=== PATIENT | female | born 1960 | race Caucasian/White ===

== ENCOUNTER 2022-03-07 04:07 | Emergency (ER) | payer OTHER, SELFPAY ==
[2022-03-07 04:10] VITALS: BP 130/76; PULSE 70; RESP 18; TEMP 36.1; O2SAT 94; BMI 33.0
--- NOTE | 2022-03-07 04:18 | EKG12_ITS ---
Test Reason : DYSRHYTHMIA Blood Pressure : / mmHG Vent. Rate : 068 BPM Atrial Rate : 068 BPM P-R Int : 166 ms QRS Dur : 078 ms QT Int : 424 ms P-R-T Axes : 031 -03 015 degrees QTc Int : 450 ms Normal sinus rhythm Inferior infarct , age undetermined Abnormal ECG Confirmed by RAYMUNDO COELLO, YARIEL ([id number]), continuity editor BUDDY PEDRAZA ([id number]) on 03/11/2022 1:09:12 PM Referred By: TL Confirmed By:YARIEL FONSECA MD
--- NOTE | 2022-03-07 04:18 | CT_ITS ---
We are attempting to reach an attending provider to discuss findings. An addendum with communication details will be sent when the communication is complete. EXAM: CT HEAD WITHOUT INTRAVENOUS CONTRAST CLINICAL INDICATION: seizure TECHNIQUE: Multiple axial images were obtained of the head without intravenous contrast. This CT exam was performed using one or more of the following dose reduction techniques: automated exposure control, adjustment of the mA and/or kV according to patient size, and/or use of iterative reconstruction technique. This report was created using [employer] report generation technology. RADIATION DOSE: CTDIvol = 44.99 mGy, DLP = 812.98 mGy-cm COMPARISON: None. FINDINGS: BRAIN AND EXTRA-AXIAL SPACES: There is no intracranial hemorrhage. BONES/JOINTS: Unremarkable. No discrete lytic or blastic abnormalities. VASCULATURE: There is a large heavily calcified suspected aneurysm in the region of the distal right cavernous carotid-supraclinoid ICA versus heavily ossified meningioma or other mass, this measures roughly 1.1 cm x 1.1 cm. There also appears to be adjacent slight low-attenuation edema in the deep right frontal region and possibly small suprasellar mass involving the hypothalamic stalk or adjacent soft tissues. SINUSES: Unremarkable as visualized. Clear. MASTOID AIR CELLS: Unremarkable. Clear. ORBITS: Visualized globes, extraocular muscles, optic nerves and retrobulbar fat appear unremarkable. CT/Brain/Head without Contrast IMPRESSION: Complex findings with heavily calcified-ossified aneurysm adjacent edema versus mass in the right supraclinoid region and some adjacent subtle low-attenuation in the parenchyma.. Additional evaluation such as CTA and MRI with MRA is recommended. Of course any prior exam would be useful for comparison. Electronically Signed: Felecia Martinez MD at 5:26 EDT ,
--- NOTE | 2022-03-07 04:20 | EX.ED.DYSGE1 ---
HPI History of Present Illness Chief Complaint: Confusion Informant: spouse/S.O. Narrative Narrative: Brought in by EMS from home, is present providing information. Awake given at 3 AM, patient noted to be flailing both arms and foaming at the mouth. Concerns of seizures, lasted a few minutes. No history of seizures. Patient reported headache yesterday afternoon. Was doing well otherwise. No cough. No recent vomiting or diarrhea. Patient does not take daily medicines surgical history includes hiatal hernia, cholecystectomy, appendectomy. Patient does not respond to EMS blood glucose 133. Patient is slowly responding on arrival. Prior similar symptoms: No PFSH PFS Medical History (Updated 03/07/22 @ 07:[address] Dakotah West DO) Migraines Allergy/AdvReac Type Severity Reaction Status Date / Time acetaminophen [From Percocet] AdvReac Nausea Verified 03/07/22 04:24 oxycodone [From Percocet] AdvReac Nausea Verified 03/07/22 04:24 Surgical History History of appendectomy History of cholecystectomy History of hernia surgery Social History Smoking Status: Never smoker ROS ROS ED Review of Systems ROS Unobtainable: due to mental status Constitutional Constitutional ED: Denies chills, fever(s) or sweats ENT ENT ED: Denies dysphagia Cardiovascular Cardiovascular: Denies leg edema Respiratory/Chest Respiratory/Chest: Denies cough Gastrointestinal Gastrointestinal: Denies abdominal pain, diarrhea, nausea or vomiting Musculoskeletal Musculoskeletal: Denies extremity pain Integumentary Denies wounds Neurologic Neurologic: Reports headache(s) EXAM Physical Exam Const Vital Signs: 03/07/22 04:10 03/07/22 04:22 03/07/22 06:35 Temperature 96.9 F L Temperature Source Oral Pulse Rate 70 87 Respiratory Rate 18 16 Blood Pressure 130/76 H 124/66 H Blood Pressure Mean 94 85 Pulse Ox 94 94 Oxygen Delivery Method Room Air Room Air Room Air Oxygen Flow Rate (L/min) 03/07/22 07:00 Temperature Temperature Source Pulse Rate 65 Respiratory Rate 13 Blood Pressure 128/80 H Blood Pressure Mean 96 Pulse Ox 99 Oxygen Delivery Method Nasal Cannula Oxygen Flow Rate (L/min) 2 Positive well nourished and well developed Constitutional Narrative: Following some commands, answering some questions, protecting her airway, not fully awake given. General Appearance ED: well developed HEENT Reports moist mucous membranes HEENT Narrative: Tongue abrasion left anterior. normocephalic and atraumatic Eyes conjunctivae normal General Eye ED: Yes normal appearance of both eyes Neck no lymphadenopathy and supple General: Negative for tenderness Chest Wall Chest: Negative for tenderness Resp normal respiratory effort, normal air movement and clear to auscultation bilaterally Effort and Inspection: symmetric chest movement; Negative for respiratory distress Cardio regular rate, regular rhythm and no murmurs Peripheral Pulses: pulses 2+ throughout GI normal to inspection, nondistended, normoactive bowel sounds and non-tender Palpation: Negative for guarding or rebound tenderness present Back/Spine no CVA tenderness and no thoracic nor lumbar tenderness Extremity normal to inspection Extremity Narrative: Moving all 4 extremities. General Extremety ED: Negative for edema or tenderness General Extremity: Negative for edema Neuro oriented x3 and no sensory deficits noted Sensorium / Orientation: awake and alert MDM MDM MDM Narrative Medical decision making narrative: Patient history and exam with tongue abrasion concerning for seizure event.. She is postictal slow to come around currently ambulatory. Reported headache yesterday per spouse. Work-up was initiated and head CT. Chest x-ray labs and urine was ordered. Nursing reported to me later she had nausea therefore Zofran was ordered. EKG sinus rhythm. 0520: I spoke with [facility] neurologist, evaluated the patient, does feel this is likely a seizure especially waking out of sleep. He states highly likelihood of it reoccurring and recommended loading dose of Keppra [address] brain resulted from radiology report noted possible aneurysm versus mass at the right supraclinoid region with subtle low-attenuation in the parenchyma. Radiologist also called, both neurology and radiology feel a CT angiogram will help differentiate the findings from the Noncon CT. Neurology recommended continuing Keppra 500 mg twice daily. Will likely need MRI studies with and without contrast in the hospital for further evaluation also. Reevaluation patient she is more awake in the room. She required additional Reglan for nausea control. Labs White count 4.3 sodium 142 creatinine 0.65. Potassium 3.0. 0700: My wet read had concerning mass 4 x 3 cm, I did not see a mass-effect she was given Decadron. Final read of large extra-axial lesion right middle cranial fossa adjacent to the medial margin of the temporal bone measuring 4 x 3 x 2.8 cm with a focal dense calcification along the clinoid process. This suggesting a large hematoma however per radiology a giant aneurysm is still in the differential however less likely. I spoke with spouse agrees with transfer to [facility]. I spoke with [facility] transfer line, discussed the findings concerns. She is excepted under Dr. Herndon to the ED to be evaluated. I did discuss laboratory findings with hypokalemia, this not causing her seizure activities, her EKG was normal. We will hold off on treatment this time. Urine returned negative for infection. Chest x-ray 1 view reviewed by myself and read by radiology. Shows no acute process. Lab Data Attestation: I reviewed the patient's lab results. Labs: Laboratory Results - last 24 hr 03/07/22 03/07/22 03/07/22 04:20 04:20 06:35 WBC 4.3 L RBC 4.37 Hgb 12.7 Hct 38.1 MCV 87.2 MCH 29.1 MCHC 33.3 RDW Std Deviation 44.0 H RDW Coeff of David 14.0 Plt Count 224 MPV 9.5 Immature Gran % (Auto) 0.200 Neut % (Auto) 51.8 Lymph % (Auto) 39.1 [place] % (Auto) 7.0 Eos % (Auto) 1.4 Baso % (Auto) 0.5 Absolute Neuts (auto) 2.2 Absolute Lymphs (auto) 1.68 Nucleated RBC % 0 Differential Comment SCANNED Platelet Estimate ADEQUATE Sodium 142 Potassium 3.0 L Chloride 111 H Carbon Dioxide 23.0 Anion Gap 8 BUN 14 Creatinine 0.65 Estim Creat Clear Calc 83.86 Est GFR (MDRD) Af Amer 119 Est GFR (MDRD) Non-Af 99 BUN/Creatinine Ratio 21.5 H Glucose 137 H Calcium 7.9 L Total Bilirubin 0.30 AST 19 ALT 26 Alkaline Phosphatase 48 Troponin I High Sens 4 Total Protein 6.3 L Albumin 3.2 Globulin 3.1 Albumin/Globulin Ratio 1.0 Urine Color Yellow Urine Clarity Clear Urine pH 7.0 Ur Specific [place] 1.010 Urine Protein Negative Urine Glucose (UA) Normal Urine Ketones Negative Urine Occult Blood 10 H Urine Nitrite Negative Urine Bilirubin Negative Urine Urobilinogen Normal Ur Leukocyte Esterase Negative Urine RBC 0 SEEN Urine WBC 0 SEEN Ur Squamous Epith Cells 0-5 SEEN Urine Bacteria 0 SEEN Urine Mucus 0 SEEN Radiography Diagnostic Testing: Clinical Impression(s) from Imaging Studies Brain CT 03/07/22 04:18 IMPRESSION: Complex findings with heavily calcified-ossified aneurysm adjacent edema versus mass in the right supraclinoid region and some adjacent subtle low-attenuation in the parenchyma.. Additional evaluation such as CTA and MRI with MRA is recommended. Of course any prior exam would be useful for comparison. Electronically Signed: Felecia Martinez MD at 5:26 EDT , ADDENDUM: 03/07/22 0538 IMPRESSION: Complex findings with heavily calcified-ossified aneurysm adjacent edema versus mass in the right supraclinoid region and some adjacent subtle low-attenuation in the parenchyma.. Additional evaluation such as CTA and MRI with MRA is recommended. Of course any prior exam would be useful for comparison. N.B. : The above Results were Read Back by Felecia Martinez MD to Dr Dakotah West MD, and understanding confirmed on 03/07/2022 05:31:34 (ET). Electronically Signed: Felecia Martinez MD at 5:26 EDT , Chest X-Ray 03/07/22 05:00 IMPRESSION: No radiographic evidence of acute cardiopulmonary disease. Electronically Signed: Felecia Martinez MD at 5:30 EDT , Head/Neck CTA 03/07/22 05:33 IMPRESSION: 1. Large extra-axial lesion in the right middle cranial fossa adjacent to the medial margin of the temporal lobe measuring 4.0 x 3.0 x 2.8 cm with a focus of dense calcification along the clinoid process, mild enhancement on the initial CTA images, and diffuse enhancement on delayed images. The imaging characteristics suggest a large meningioma, but a giant aneurysm is still in the differential, although considered less likely. A follow-up MRI including post gadolinium images and an MRA exam are recommended. 2. Otherwise unremarkable CTA evaluation of the head/neck. Electronically Signed: Pavan Nam MD at 7:00 EDT Reading Location ID and State: [address] [place] [address] Tel , Service support , ADDENDUM: 03/07/22 0711 IMPRESSION: 1. Large extra-axial lesion in the right middle cranial fossa adjacent to the medial margin of the temporal lobe measuring 4.0 x 3.0 x 2.8 cm with a focus of dense calcification along the clinoid process, mild enhancement on the initial CTA images, and diffuse enhancement on delayed images. The imaging characteristics suggest a large meningioma, but a giant aneurysm is still in the differential, although considered less likely. A follow-up MRI including post gadolinium images and an MRA exam are recommended. 2. Otherwise unremarkable CTA evaluation of the head/neck. N.B. : Dakotah West MD, confirmed on 03/07/2022 07:04:36 (ET) that the healthcare facility has received the radiology report. Electronically Signed: Pavan Nam MD at 7:00 EDT Reading Location ID and State: [address] [place] [address] Tel , Service support , EKG Initial EKG: Attestation: I personally reviewed and interpreted this EKG as follows: Comments: Sinus rate of [address] or T wave changes. QTc 450. Discharge Plan Triage Chief Complaint: Confusion ED Provider: Dakotah West Dx/Rx/DC Orders Clinical Impression: New onset seizure without head trauma, Brain mass Primary Care Provider: Carmen Williamson Referrals: Carmen Williamson PA [Primary Care Provider] - Disposition Disposition: Transfer to Another Type [facility]
[2022-03-07] MEDS: Ondansetron 4 MG/2 ML Vial IV (04:30)
[2022-03-07 04:34] LABS: Absolute Lymphocyte Count 1.68 X10^3/uL (0.83-4.51); Absolute Neutrophil Count 2.2 X10^3/uL (2.0-7.7); Basophil# 0.02 X10^3/uL; Basophil% 0.5 % (0-1); Eosinophil# 0.06 X10^3/uL; Eosinophils% 1.4 % (0-5); Hematocrit 38.1 % (37-47); Hemoglobin 12.7 g/dL (12.0-15.0); Lymphocyte # 1.68 X10^3/ul (0.83-4.51); Lymphocyte % 39.1 % (19-41); Mean Corp Hgb Conc 33.3 g/dL (32-36); Mean Corpuscular Hgb 29.1 pg (27.0-32.0); Mean Corpuscular Volume 87.2 fL (81-99); Mean Platelet Vol. 9.5 fl (6.2-12.0); NRBC Flagged by Analyzer 0 % (0-5); Neutrophil # 2.23 X10^3/uL (2.7-7.7); Neutrophil % 51.8 % (47-70); POSITIVE COUNT YES; Platelet Count 224 K/mm3 (150-450); Red Blood Count 4.37 M/mm3 (4.2-5.4); White Blood Count 4.3 K/mm3 (4.4-11.0)
[2022-03-07 04:38] LABS: Differential Indicated SCAN CRITERIA MET
[2022-03-07 04:46] LABS: AST(SGOT) 19 U/L (15-37); Alanine Aminotransfer ALT/SGPT 26 U/L (13-56); Albumin, Serum 3.2 g/dL (3.2-5.0); Alkaline Phosphatase 48 U/L (45-117); Anion Gap 8 (5-15); BUN 14 mg/dL (7-18); BUN/Creat Ratio 21.5 RATIO (10-20); Calcium,Total 7.9 mg/dL (8.5-10.1); Chloride 111 mmol/L (98-107); Creatinine, Serum 0.65 mg/dL (0.55-1.02); EST Glomerular Filtration Rate 99 mL/min (>60); Est Glom Filt Rate - Afr Amer 119 mL/min (>60); Estimated Creatinine Clearance 83.86 ml/min; Globulin 3.1 g/dL (2.2-4.2); Glucose 137 mg/dL (74-106); Protein, Total 6.3 g/dL (6.4-8.2); Sodium Level 142 mmol/L (136-145); Troponin-I HS 4 pg/mL (3.0-54.0)
--- NOTE | 2022-03-07 05:00 | RAD_ITS ---
EXAM: XR CHEST, 1 VIEW CLINICAL INDICATION: altered mental status TECHNIQUE: Frontal view of the chest. This report was created using [employer] report generation technology. COMPARISON: None. FINDINGS: LUNGS AND PLEURAL SPACES: Unremarkable. No consolidation or edema. No pneumothorax. No effusion. HEART: Unremarkable. Cardiac silhouette not enlarged. MEDIASTINUM: Central airways and mediastinal contour are unremarkable. BONES/JOINTS: Unremarkable. SOFT TISSUES: Unremarkable. RAD/Chest 1 View (Portable) IMPRESSION: No radiographic evidence of acute cardiopulmonary disease. Electronically Signed: Felecia Martinez MD at 5:30 EDT ,
--- NOTE | 2022-03-07 05:01 | TELEMED_ITS ---
[facility] has confirmed receipt of a request for visit. This document confirms receipt of the order initiating the consult. To find the results of the consultation, please view the patient's reports for the scanned Telemed Consult.
[2022-03-07 05:05] LABS: Differential Comment SCANNED; Platelet Estimate ADEQUATE (ADEQ)
[2022-03-07] MEDS: Metoclopramide 10 MG/2 ML Vial 5 MG IV (05:13)
--- NOTE | 2022-03-07 05:33 | CT_ITS ---
ACR Level 3 findings have been noted. An addendum which confirms receipt of the report will follow. EXAM: CT ANGIOGRAPHY HEAD AND NECK WITH INTRAVENOUS CONTRAST CLINICAL INDICATION: aneurysm TECHNIQUE: [place] [facility] [place]/head and neck CT angiography protocol performed with intravenous contrast. This CT exam was performed using one or more of the following dose reduction techniques: automated exposure control, adjustment of the mA and/or kV according to patient size, and/or use of iterative reconstruction technique. This report was created using [employer] report generation technology. MIP reconstructed images were created and reviewed. CONTRAST: IV 100mL [id number] COMPARISON: Noncontrast head CT from same date. FINDINGS: HEAD: RIGHT ANTERIOR CEREBRAL ARTERY: Unremarkable. No significant stenosis at the visualized segments. Anterior communicating artery is present. No aneurysm. RIGHT MIDDLE CEREBRAL ARTERY: Unremarkable. No significant stenosis at the visualized segments. No aneurysm. RIGHT POSTERIOR CEREBRAL ARTERY: Unremarkable. No occlusion or significant stenosis. No aneurysm. RIGHT INTRACRANIAL INTERNAL CAROTID ARTERY: Unremarkable. No significant stenosis. No dissection or occlusion. RIGHT INTRACRANIAL VERTEBRAL ARTERY: Unremarkable. No significant stenosis. No dissection or occlusion. LEFT ANTERIOR CEREBRAL ARTERY: Unremarkable. No significant stenosis at the visualized segments. No aneurysm. LEFT MIDDLE CEREBRAL ARTERY: Unremarkable. No significant stenosis at the visualized segments. No aneurysm. LEFT POSTERIOR CEREBRAL ARTERY: Unremarkable. No occlusion or significant stenosis. No aneurysm. LEFT INTRACRANIAL INTERNAL CAROTID ARTERY: Unremarkable. No significant stenosis. No dissection or occlusion. LEFT INTRACRANIAL VERTEBRAL ARTERY: Unremarkable. No significant stenosis. No dissection or occlusion. BASILAR ARTERY: Unremarkable. No significant stenosis. No aneurysm. OTHER VASCULATURE: No vascular malformation. BRAIN AND EXTRA-AXIAL SPACES: Large extra-axial lesion in the right middle cranial fossa along the medial margin of the temporal lobe measuring 4.0 x 3.0 x 2.8 cm with a focus of dense calcification along the clinoid process, mild enhancement on the initial CTA images, and diffuse enhancement on delayed images. NECK: RIGHT COMMON CAROTID ARTERY: Unremarkable. No significant stenosis. No dissection or occlusion. RIGHT EXTRACRANIAL INTERNAL CAROTID ARTERY: Unremarkable. No significant stenosis. No dissection or occlusion. RIGHT EXTERNAL CAROTID ARTERY: Unremarkable. No occlusion. RIGHT EXTRACRANIAL VERTEBRAL ARTERY: Unremarkable. No significant stenosis. No dissection or occlusion. LEFT COMMON CAROTID ARTERY: Unremarkable. No significant stenosis. No dissection or occlusion. LEFT EXTRACRANIAL INTERNAL CAROTID ARTERY: Unremarkable. No significant stenosis. No dissection or occlusion. LEFT EXTERNAL CAROTID ARTERY: Unremarkable. No occlusion. LEFT EXTRACRANIAL VERTEBRAL ARTERY: Unremarkable. No significant stenosis. No dissection or occlusion. GREAT VESSELS OF AORTIC ARCH: Unremarkable as visualized. Normal anatomy, patent. LUNG APICES: Unremarkable as visualized. HEAD and NECK: BONES/JOINTS: No acute osseous findings. SOFT TISSUES: Unremarkable. CAROTID STENOSIS REFERENCE USING NASCET CRITERIA: % ICA stenosis = (1 - narrowest ICA diameter/diameter of distal cervical ICA) x 100. Mild - <50% stenosis. Moderate - 50-69% stenosis. Severe - 70-94% stenosis. Near occlusion - 95-99% stenosis. Occluded - 100% stenosis. CT/CTA Head AND Neck W/ Contrast IMPRESSION: 1. Large extra-axial lesion in the right middle cranial fossa adjacent to the medial margin of the temporal lobe measuring 4.0 x 3.0 x 2.8 cm with a focus of dense calcification along the clinoid process, mild enhancement on the initial CTA images, and diffuse enhancement on delayed images. The imaging characteristics suggest a large meningioma, but a giant aneurysm is still in the differential, although considered less likely. A follow-up MRI including post gadolinium images and an MRA exam are recommended. 2. Otherwise unremarkable CTA evaluation of the head/neck. Electronically Signed: Pavan Nam MD at 7:00 EDT ,
[2022-03-07] MEDS: dexAMETHasone 10 MG/ML Vial IV (06:27)
[2022-03-07 06:35] VITALS: BP 124/66; PULSE 87; RESP 16; O2SAT 94
[2022-03-07 06:41] LABS: Bacteria 0 SEEN /hpf (None Seen); Mucous, Urine 0 SEEN /hpf (<or=2+); Red Blood Cells-Urine 0 SEEN /hpf (0-5); White Blood Cells 0 SEEN /hpf (0-5)
[2022-03-07 06:44] LABS: Color, Urine Yellow (Yellow); Glucose, Dipstick Normal (Normal); Ketone-Dipstick Negative (Negative); Leukocyte Esterase-Dipstick Negative /ul (Negative); Nitrite-Dipstick Negative (Negative); Occult Blood-Urine 10 /ul (Negative); Protein-Dipstick Negative (Negative); Urine Bilirubin Dipstick Negative (Negative); Urine Clarity Clear (Clear); Urine Urobilinogen Normal (Normal)
[2022-03-07 06:50] LABS: Squamous Epithelial Cells - UA 0-5 SEEN /hpf (5-10)
[2022-03-07 07:00] VITALS: BP 128/80; PULSE 65; RESP 13; O2SAT 99
[2022-03-07 07:23] VITALS: BP 125/74; PULSE 78; RESP 18; O2SAT 98
--- NOTE | 2022-03-07 10:05 | ED.RN ---
SPOKE WITH PT. DAUGHTER, FABI, AND FRIEND, JANE SÁNCHEZ, AND UPDATED PT. STATUS. PT. VERBALIZED CONSENT.
[2022-03-07 10:39] VITALS: BP 96/53; PULSE 74; RESP 18; O2SAT 98
== END 2022-03-07 10:47 | disposition other institution (70) ==
PROVIDERS: Emergency Provider Emergency Medicine; PCP Physician Assistant; Visit Provider Emergency Medicine
DX: R56.9 Unspecified convulsions (principal); G93.9 Disorder of brain, unspecified
CPT/HCPCS: 70450; 70496; 70498; 71045; 80053; 81001; 84484; 85025; 93005; 96365; 96375; 99285; Q9967; A4216; J2405

== ENCOUNTER 2022-04-07 07:20 | Emergency (ER) | payer OTHER, SELFPAY ==
[2022-04-07 07:22] VITALS: BP 118/69; PULSE 75; RESP 17; TEMP 36.8; O2SAT 97; BMI 34.9
--- NOTE | 2022-04-07 07:38 | EKG12_ITS ---
Test Reason : FEVER Blood Pressure : / mmHG Vent. Rate : 073 BPM Atrial Rate : 073 BPM P-R Int : 140 ms QRS Dur : 076 ms QT Int : 386 ms P-R-T Axes : 050 009 018 degrees QTc Int : 425 ms Normal sinus rhythm Nonspecific ST abnormality Abnormal ECG Confirmed by LEO COELLO, ALEXANDRA ([id number]), photographic editor CARMINE LENTZ ([id number]) on 04/09/2022 8:44:28 AM Referred By: Confirmed By:ALEXANDRA BAILEY MD
--- NOTE | 2022-04-07 07:38 | RAD_ITS ---
STUDY: X-RAY CHEST REASON FOR EXAM: Female, 61 years old. FEVER TECHNIQUE: Single AP portable view of the chest. COMPARISON: Comparison is made with prior study dated 03/07/2022. FINDINGS: EKG electrodes are seen. The lungs are clear and expanded. Stable elevation of the right hemidiaphragm. There is no demonstrated pleural abnormality. There is borderline cardiomegaly. Normal mediastinum and campbell. Normal visualized pulmonary arteries. There is atherosclerotic tortuosity of the aortic arch and descending thoracic aorta. There are degenerative changes of the visualized thoracic spine. Normal visualized ribs, clavicles, and shoulders. There is no demonstrated abnormality of the visualized soft tissue structures of the upper abdomen. RAD/Chest 1 View (Portable) IMPRESSION: Borderline cardiomegaly. The lungs are clear. Electronically Signed: Miguel Angel Cotton MD at 8:42 EDT ,
--- NOTE | 2022-04-07 07:40 | EDS_ITS ---
HPI History of Present Illness Chief Complaint: Fever Informant: patient and spouse/S.O. Narrative Narrative: Patient underwent craniotomy at [facility] on 27 March 2022 for meningioma that was benign. She was released several days later. Yesterday began to feel a heada josiah on the right side of her head near her craniotomy scar. At midnight she had a 101 fever. gave her Tylenol. This morning she felt like she may pass out trying to get out of the chair. She denies any neck pain. No sensitivity to light. She describes the headache as throbbing and isolated. She denies any rashes. She felt slightly nauseous this morning. [facility] Medical History (Updated 04/07/22 @ 13:[address] Lemuel Ng DO) Meningioma Migraines Home Medications oxycodone 5 mg capsule 5 mg PO Q6H PRN pain 3 days #12 caps 04/07/22 [Rx Last Taken Unknown] Allergy/AdvReac Type Severity Reaction Status Date / Time meperidine [From Demerol] AdvReac Nausea Verified 04/07/22 07:21 Surgical History History of appendectomy History of cholecystectomy History of hernia surgery Social History Smoking Status: Never smoker ROS ROS ED Constitutional Constitutional ED: Reports fever(s); Denies chills or weight loss Eyes Eyes: Denies change in vision or diplopia ENT ENT ED: Denies ear pain, rhinorrhea or sore throat Cardiovascular Cardiovascular: Reports other Details: NEAR SYNCOPE ; Denies chest pain, orthopnea, palpitations or racing heartbeat Respiratory/Chest Respiratory/Chest: Denies cough, dyspnea or orthopnea Gastrointestinal Gastrointestinal: Denies abdominal pain, diarrhea, nausea or vomiting Genitourinary Genitourinary ED: Denies dysuria, hematuria or urinary frequency Musculoskeletal Musculoskeletal: Denies arthralgias, back pain, myalgias or neck pain Integumentary Denies abscess or rash Neurologic Neurologic: Reports headache(s); Denies weakness Psychiatric Psychiatric: Denies anxiety, depression, suicidal ideation or suicidal thoughts Endocrine Endocrinology: Denies polydipsia, polyphagia or polyuria Allergic/Immunologic Allergic/Immunologic ED: Denies mouth swelling, tongue swelling or urticaria EXAM Physical Exam Const Vital Signs: 04/07/22 07:22 04/07/22 08:40 04/07/22 08:40 Temperature 98.2 F Temperature Source Temporal Pulse Rate 75 68 Respiratory Rate 17 16 Respiratory Pattern Normal Blood Pressure 118/69 117/71 Blood Pressure Mean 85 86 Pulse Ox 97 98 Oxygen Delivery Method Room Air Room Air 04/07/22 10:25 Temperature 97.9 F Temperature Source Temporal Pulse Rate 69 Respiratory Rate 16 Respiratory Pattern Blood Pressure 135/73 H Blood Pressure Mean 93 Pulse Ox 98 Oxygen Delivery Method Room Air Positive well nourished and well developed General Appearance ED: well developed HEENT Reports normocephalic and moist mucous membranes HEENT Narrative: Healing craniotomy scar without complication Eyes PERRL and EOMs intact bilaterally Eyes Narrative: No photophobia. Normal funduscopic exam. Neck no lymphadenopathy, supple and no JVD Neck Narrative: Patient has no meningeal signs. Resp normal respiratory effort and clear to auscultation bilaterally Cardio regular rate, regular rhythm and no murmurs GI normal to inspection, nondistended, normoactive bowel sounds and non-tender Palpation: soft Back/Spine no CVA tenderness and normal ROM Extremity normal to inspection General Extremety ED: Negative for edema General Extremity: Negative for edema Neuro oriented x3 and CN's II-XII intact bilaterally Sensorium / Orientation: alert Motor Exam: strength 5/5 throughout Psych mental status grossly normal Mood & Affect: Negative for depressed or tearful Skin no rashes or lesions noted and no wounds MDM MDM MDM Narrative Medical decision making narrative: Patient's blood work is very reassuring. White count is 8 lactic acid is normal 1.1. CMP is normal. Urinalysis does not show any infection. My interpretation of the chest x-ray is no acute process. COVID and influenza were negative. Patient received a dose of Toradol and her headache is significantly improved. CT of the brain with and without contrast was obtained. I spoke with her neurosurgeon at [facility]. We reviewed the CT and her labs. They feel that the CT is consistent with typical postoperative changes. We do not see evidence of meningitis. They are comfortable with her being discharged. Spoke with the family and the patient we will discharge her home. They did not fill a prescription for pain medicine when they left [facility] and think that it may still be at their pharmacy. I will write for another prescription in case that prescription is no longer valid. Lab Data Attestation: I reviewed the patient's lab results. Labs: Laboratory Results - last 24 hr 04/07/22 04/07/22 04/07/22 08:10 08:10 08:10 WBC 8.0 RBC 4.54 Hgb 13.3 Hct 40.8 MCV 89.9 MCH 29.3 MCHC 32.6 RDW Std Deviation 46.9 H RDW Coeff of David 14.5 Plt Count 307 MPV 8.5 Immature Gran % (Auto) 0.500 Neut % (Auto) 71.5 H Lymph % (Auto) 18.2 L Waller % (Auto) 9.3 Eos % (Auto) 0.1 Baso % (Auto) 0.4 Absolute Neuts (auto) 5.7 Absolute Lymphs (auto) 1.45 Nucleated RBC % 0 Sodium 141 Potassium 3.5 Chloride 106 Carbon Dioxide 29.0 Anion Gap 6 BUN 10 Creatinine 0.63 Estim Creat Clear Calc 72.55 Est GFR (MDRD) Af Amer 124 Est GFR (MDRD) Non-Af 102 BUN/Creatinine Ratio 15.8 Glucose 92 Lactic Acid 1.1 Calcium 9.0 Total Bilirubin 0.40 AST 12 L ALT 17 Alkaline Phosphatase 61 Total Protein 6.6 Albumin 3.1 L Globulin 3.5 Albumin/Globulin Ratio 0.9 Lipase 58 L Urine Color Urine Clarity Urine pH Ur Specific [place] Urine Protein Urine Glucose (UA) Urine Ketones Urine Occult Blood Urine Nitrite Urine Bilirubin Urine Urobilinogen Ur Leukocyte Esterase Urine RBC Urine WBC Ur Squamous Epith Cells Urine Bacteria Urine Mucus 04/07/22 08:13 WBC RBC Hgb Hct MCV MCH MCHC RDW Std Deviation RDW Coeff of David Plt Count MPV Immature Gran % (Auto) Neut % (Auto) Lymph % (Auto) Waller % (Auto) Eos % (Auto) Baso % (Auto) Absolute Neuts (auto) Absolute Lymphs (auto) Nucleated RBC % Sodium Potassium Chloride Carbon Dioxide Anion Gap BUN Creatinine Estim Creat Clear Calc Est GFR (MDRD) Af Amer Est GFR (MDRD) Non-Af BUN/Creatinine Ratio Glucose Lactic Acid Calcium Total Bilirubin AST ALT Alkaline Phosphatase Total Protein Albumin Globulin Albumin/Globulin Ratio Lipase Urine Color Yellow Urine Clarity Clear Urine pH 6.5 Ur Specific [place] 1.010 Urine Protein Negative Urine Glucose (UA) Normal Urine Ketones Negative Urine Occult Blood 10 H Urine Nitrite Negative Urine Bilirubin Negative Urine Urobilinogen Normal Ur Leukocyte Esterase 25 H Urine RBC 0 SEEN Urine WBC 5-10 SEEN Ur Squamous Epith Cells 0-5 SEEN Urine Bacteria 0 SEEN Urine Mucus 0 SEEN Radiography Diagnostic Testing: Clinical Impression(s) from Imaging Studies Chest X-Ray 04/07/22 07:38 IMPRESSION: Borderline cardiomegaly. The lungs are clear. Electronically Signed: Miguel Angel Cotton MD at 8:42 EDT , Brain CT 04/07/22 08:25 IMPRESSION: Status post right frontal parietal temporal craniotomy with postoperative overlying soft tissue changes. Small amount of fluid and air is seen within the soft tissues as well as a small amount of air and fluid seen in the subdural space overlying the right frontal lobe. Meningeal enhancement along the anterior aspect of the right temporal Electronically Signed: Miguel Angel Cotton MD at 9:08 EDT , EKG Initial EKG: Attestation: I personally reviewed and interpreted this EKG as follows: Comments: Normal sinus rhythm with a ventricular rate of 73 bpm Discharge Plan Triage Chief Complaint: Fever ED Provider: Lemuel Ng Dx/Rx/DC Orders Clinical Impression: Headache, Acute febrile illness Instructions: ED FUO Adult Prescriptions: New oxycodone 5 mg capsule 5 mg PO Q6H PRN (Reason: pain) 3 Days Qty: 12 0RF Primary Care Provider: Carmen Williamson Referrals: Carmen Williamson PA [Primary Care Provider] - Activity Restrictions/Additional Instructions: Please call your neurosurgeons office to update them either tomorrow or the next day regarding how she is feeling. They will also need to know if she has any additional fever or new symptoms. If there are any concerns please return to emergency. Disposition Disposition: Home, Self Care
[2022-04-07] MEDS: 0.9% Normal Saline 1,000 ML 1000 ML IV (08:13)
[2022-04-07] MEDS: Ondansetron 4 MG/2 ML Vial IV (08:13)
[2022-04-07 08:25] LABS: Absolute Lymphocyte Count 1.45 X10^3/uL (0.83-4.51); Absolute Neutrophil Count 5.7 X10^3/uL (2.0-7.7); Basophil# 0.03 X10^3/uL; Basophil% 0.4 % (0-1); Eosinophil# 0.01 X10^3/uL; Eosinophils% 0.1 % (0-5); Hematocrit 40.8 % (37-47); Hemoglobin 13.3 g/dL (12.0-15.0); Lymphocyte # 1.45 X10^3/ul (0.83-4.51); Lymphocyte % 18.2 % (19-41); Mean Corp Hgb Conc 32.6 g/dL (32-36); Mean Corpuscular Hgb 29.3 pg (27.0-32.0); Mean Corpuscular Volume 89.9 fL (81-99); Mean Platelet Vol. 8.5 fl (6.2-12.0); Monocyte# 0.74 X10^3/uL; Monocyte% 9.3 % (0-10); NRBC Flagged by Analyzer 0 % (0-5); Neutrophil # 5.69 X10^3/uL (2.7-7.7); Neutrophil % 71.5 % (47-70); Platelet Count 307 K/mm3 (150-450); RBC Distribution Width CV 14.5 % (11.6-14.6); RBC Distribution Width SD 46.9 fl (35.1-43.9); Red Blood Count 4.54 M/mm3 (4.2-5.4)
--- NOTE | 2022-04-07 08:25 | CT_ITS ---
STUDY: CT BRAIN WITH AND WITHOUT CONTRAST REASON FOR EXAM: Female, 61 years old. HEADACHE AND FEVER RECENT CRANIOTOMY RADIATION DOSAGE (If Supplied By Facility): CTDIvol = ( 44.99 ) mGy, DLP = ( 1583.78 ) mGycm TECHNIQUE: Transaxial CT imaging of the brain was performed pre and post contrast administration. The examination was performed with intravenous administration of 50 CC ISOVUE 300. Individualized dose optimization techniques were used for this CT. COMPARISON: Comparison is made with prior examination dated 03/07/2022. FINDINGS: Soft tissue swelling overlying the right craniotomy site with a small air bubbles within the soft tissues. The patient is status post right temporal frontal parietal craniotomy. There is evidence of a small amount of the fluid in the subdural space overlying the right frontal lobe at the operative site with a small amount of air within the subdural space. There is evidence of a meningeal enhancement along the anterior aspect of the right temporal fossa. The patient is status post resection of the meningioma or aneurysm in the region of the right cavernous carotid/supraclinoid region. Normal basal ganglia and thalami. Normal brainstem. Normal cerebellum. There is no intracranial hemorrhage. There are no findings of an acute ischemic infarction. Normal visualized paranasal sinuses. CT/Brain/Head W/WO Contrast IMPRESSION: Status post right frontal parietal temporal craniotomy with postoperative overlying soft tissue changes. Small amount of fluid and air is seen within the soft tissues as well as a small amount of air and fluid seen in the subdural space overlying the right frontal lobe. Meningeal enhancement along the anterior aspect of the right temporal Electronically Signed: Miguel Angel Cotton MD at 9:08 EDT ,
[2022-04-07 08:40] VITALS: BP 117/71; PULSE 68; RESP 16; O2SAT 98
[2022-04-07 08:40] LABS: ALB/GLOB Ratio 0.9 RATIO (0.9-2.4); AST(SGOT) 12 U/L (15-37); Alanine Aminotransfer ALT/SGPT 17 U/L (13-56); Albumin, Serum 3.1 g/dL (3.2-5.0); Alkaline Phosphatase 61 U/L (45-117); Anion Gap 6 (5-15); BUN 10 mg/dL (7-18); BUN/Creat Ratio 15.8 RATIO (10-20); Chloride 106 mmol/L (98-107); Creatinine, Serum 0.63 mg/dL (0.55-1.02); EST Glomerular Filtration Rate 102 mL/min (>60); Est Glom Filt Rate - Afr Amer 124 mL/min (>60); Estimated Creatinine Clearance 72.55 ml/min; Globulin 3.5 g/dL (2.2-4.2); Glucose 92 mg/dL (74-106); Lipase 58 U/L (73-393); Potassium 3.5 mmol/L (3.5-5.1); Protein, Total 6.6 g/dL (6.4-8.2); Sodium Level 141 mmol/L (136-145)
[2022-04-07 08:49] LABS: Lactic Acid 1.1 mmol/L (0.4-1.9)
[2022-04-07 10:25] VITALS: BP 135/73; PULSE 69; RESP 16; TEMP 36.6; O2SAT 98
[2022-04-07] MEDS: Ketorolac 30 MG/ML Syringe IV (10:55)
[2022-04-07 11:10] LABS: Bacteria 0 SEEN /hpf (None Seen); Color, Urine Yellow (Yellow); Glucose, Dipstick Normal (Normal); Ketone-Dipstick Negative (Negative); Leukocyte Esterase-Dipstick 25 /ul (Negative); Mucous, Urine 0 SEEN /hpf (<or=2+); Nitrite-Dipstick Negative (Negative); Occult Blood-Urine 10 /ul (Negative); Protein-Dipstick Negative (Negative); Red Blood Cells-Urine 0 SEEN /hpf (0-5); Urine Bilirubin Dipstick Negative (Negative); Urine Clarity Clear (Clear); Urine Urobilinogen Normal (Normal); Urine pH 6.5 (5.0 - 8.0)
[2022-04-07 11:16] LABS: Squamous Epithelial Cells - UA 0-5 SEEN /hpf (5-10); White Blood Cells 5-10 SEEN /hpf (0-5)
--- NOTE | 2022-04-07 11:28 | NURSING ---
CALLING NEUROSURGERY, DR LUCRECIA WOOD [phone]
== END 2022-04-07 13:42 | disposition home or self-care (01) ==
PROVIDERS: Emergency Provider Emergency Medicine; PCP Physician Assistant; Visit Provider Emergency Medicine
DX: R50.9 Fever, unspecified (principal); D32.0 Benign neoplasm of cerebral meninges; R51.9 Headache, unspecified
CPT/HCPCS: 70470; 71045; 80053; 81001; 83605; 83690; 85025; 87040; 87428; 93005; 96361; 96374; 96375; 99283; J7030; Q9967; A4216; J2405

== ENCOUNTER 2022-12-09 03:25 | Emergency (ER) | payer OTHER, SELFPAY ==
[2022-12-09 03:28] VITALS: BP 151/96; PULSE 83; RESP 18; TEMP 36.4; O2SAT 95; BMI 38.0
--- NOTE | 2022-12-09 03:39 | CT_ITS ---
INDICATION: Seizure, status post meningioma excision EXAMINATION: CT BRAIN - CT Head or Brain W/O Contrast Injection TECHNIQUE: Multiple axial images were obtained of the head without intravenous contrast. A radiation dose optimization technique was used for this scan. IV Contrast dosage and agent: None. COMPARISON: FINDINGS: BRAIN PARENCHYMA: No intra- or extra-axial hemorrhage. No evidence of acute infarct. No intracranial mass or mass effect. There is preservation of the maher/white matter interface. Posterior fossa structures are unremarkable. CSF SPACES: Appropriate for age. No hydrocephalus. Basal cisterns are patent. CALVARIUM, SKULL BASE, PARANASAL SINUSES AND MASTOID AIR CELLS: Clear. No discrete lytic or blastic abnormalities. ORBITS: Both globes, extraocular muscles, optic nerves and retrobulbar fat appear unremarkable. ASPECTS Score for Acute Strokes: 10 CT/Brain/Head without Contrast IMPRESSION: Negative Brain CT without contrast. Electronically Signed: Jez Stephens MD at 4:35 EST ,
--- NOTE | 2022-12-09 03:40 | EX.ED.DYSGE1 ---
HPI History of Present Illness Chief Complaint: Seizure Informant: patient and spouse/S.O. Narrative Narrative: This patient apparently had a seizure at home. It lasted up to 10 minutes. She was confused afterwards but is getting to be almost back to normal now. She was actually able to remember the name of her surgeon when her was not so she is actually doing quite well. This patient did have a seizure a little less than a year ago. At that point she was diagnosed with a meningioma. She was transferred to [facility]. Dr. Danielle removed this. It was benign. She has not had a seizure since. She is on no medications at this time except vitamins. She has been feeling fine recently. No fevers chills cough nausea vomiting diarrhea. She was up doing puzzles the evening before this and even looking back was asymptomatic. She is not complaining of any pain or problems now. She has no headache shoulder pain or other areas. She feels tired but is otherwise feeling back to normal. [facility] Medical History Meningioma Migraines Home Medications Multi Vitamin 12/09/22 [History Last Taken Unknown] levetiracetam 500 mg tablet (Keppra) 500 mg PO BID #60 tabs 12/09/22 [Rx Last Taken Unknown] Allergy/AdvReac Type Severity Reaction Status Date / Time meperidine [From Demerol] AdvReac Nausea Verified 04/07/22 07:21 Surgical History History of appendectomy History of cholecystectomy History of hernia surgery Social History Smoking Status: Never smoker ROS ROS ED Constitutional Constitutional ED: Denies chills or fever(s) Eyes Eyes: Denies blurry vision or diplopia ENT ENT ED: Denies rhinorrhea Cardiovascular Cardiovascular: Denies chest pain or palpitations Respiratory/Chest Respiratory/Chest: Denies cough or dyspnea Gastrointestinal Gastrointestinal: Denies diarrhea, nausea or vomiting Genitourinary Genitourinary ED: Denies dysuria Musculoskeletal Musculoskeletal: Denies myalgias Integumentary Denies rash Neurologic Neurologic: Reports other Details: See history of present illness regarding seizure. ; Denies headache(s), paresthesias or weakness Endocrine Endocrinology: Denies polydipsia or polyuria Hematologic/Lymphatic Hematologic/Lymphatic: Denies easy bleeding or easy bruising Allergic/Immunologic Allergic/Immunologic ED: Denies urticaria EXAM Physical Exam Narrative Exam Narrative: Patient is lying in bed. She is in no acute distress. She does look a little bit tired but nontoxic. She does not recall the seizure but is a good informant for other details. HEENT shows no sign of external trauma. She does have a small abrasion on the left side of her tongue that had some bleeding but has now stopped. It is not lacerated and does not need suturing. No sinus tenderness. Eyes show pupils that are little bit smaller closer about 2 mm but do appear to be reactive. She is in a well lit room. Neck shows no tenderness or pain with motion Lungs are clear bilaterally. Heart is regular without murmur gallop or rub. Distal pulses are normal. Abdomen is soft completely nontender shows no CVA or suprapubic tenderness Extremities show no pain with palpation or range of motion. Shoulders have good range of motion without pain. Neurologically patient is a little bit tired but she is spontaneously awake. She answers questions correctly. She is oriented x3. There is no focal deficit at this time. Const Vital Signs: 12/09/22 03:28 12/09/22 04:40 Temperature 97.6 F L Temperature Source Temporal Pulse Rate 83 100 Respiratory Rate 18 19 H Blood Pressure 151/96 H 148/82 H Blood Pressure Mean 114 104 Pulse Ox 95 73 Oxygen Delivery Method Room Air Room Air MDM MDM MDM Narrative Medical decision making narrative: My independent interpretation the patient's CT of the head shows no sign of bleeding or acute process. I do not see a mass. No dilated ventricles. There are changes consistent with her prior surgery and healing bony structure. Final reading by radiology is negative CT of the brain without contrast. Patient's CBC is normal. Electrolytes are normal other than minimally decreased potassium. I do not think this is the cause of her symptoms. This should self correct. Patient had slightly high BUN to creatinine ratio showing some mild dehydration she was treated with fluids. Patient was given Zofran which helped her nausea. Patient has been here for about 3 hours. She is awake alert and appropriate. No repeat seizures. I was able to contact [facility] neurosurgery. I discussed the case with Dr. Jordan who was on-call for her surgeon. He did recommend starting a low-dose of Keppra at 500 mg p.o. twice daily. We will give first dose here. We went over the patient's phone number and I have verified this with the patient and her . [facility] will be contacting her to make sure she is doing well and to arrange follow-up care and likely follow-up MRI. All questions were answered. Lab Data Labs: Laboratory Results - last 24 hr 12/09/22 12/09/22 03:40 03:40 WBC 5.4 RBC 4.77 Hgb 13.7 Hct 41.1 MCV 86.2 MCH 28.7 MCHC 33.3 RDW Std Deviation 40.5 RDW Coeff of David 13.1 Plt Count 305 MPV 8.9 Immature Gran % (Auto) 0.600 Neut % (Auto) 61.3 Lymph % (Auto) 28.5 Cobb % (Auto) 7.9 Eos % (Auto) 1.3 Baso % (Auto) 0.4 Absolute Neuts (auto) 3.3 Absolute Lymphs (auto) 1.55 Nucleated RBC % 0 Sodium 142 Potassium 3.3 L Chloride 110 H Carbon Dioxide 26.0 Anion Gap 6 BUN 14 Creatinine 0.62 Estim Creat Clear Calc 72.81 Est GFR (MDRD) Af Amer 125 Est GFR (MDRD) Non-Af 103 BUN/Creatinine Ratio 22.4 H Glucose 131 H Calcium 9.1 Radiography Diagnostic Testing: Clinical Impression(s) from Imaging Studies Brain CT 12/09/22 03:39 IMPRESSION: Negative Brain CT without contrast. Electronically Signed: Jez Stephens MD at 4:35 EST , Discharge Plan Triage Chief Complaint: Seizure ED Provider: Pankaj Rivas Dx/Rx/DC Orders Clinical Impression: Seizure, History of meningioma, Mild dehydration Instructions: ED Seizure, Recurrent (Adult) Prescriptions: New levetiracetam [Keppra] 500 mg tablet 500 mg PO BID Qty: 60 0RF No Action Multi Vitamin Primary Care Provider: Care Physician,No Primary Referrals: Carmen Williamson PA [Non-Staff] - 1-2 Weeks Activity Restrictions/Additional Instructions: Your neuro surgeon will contact you this week for follow-up and to recheck. Disposition Disposition: Home, Self Care
[2022-12-09 03:49] LABS: Absolute Lymphocyte Count 1.55 X10^3/uL (0.83-4.51); Absolute Neutrophil Count 3.3 X10^3/uL (2.0-7.7); Basophil# 0.02 X10^3/uL; Basophil% 0.4 % (0-1); Eosinophil# 0.07 X10^3/uL; Eosinophils% 1.3 % (0-5); Hematocrit 41.1 % (37-47); Hemoglobin 13.7 g/dL (12.0-15.0); Lymphocyte # 1.55 X10^3/ul (0.83-4.51); Lymphocyte % 28.5 % (19-41); Mean Corp Hgb Conc 33.3 g/dL (32-36); Mean Corpuscular Hgb 28.7 pg (27.0-32.0); Mean Corpuscular Volume 86.2 fL (81-99); Mean Platelet Vol. 8.9 fl (6.2-12.0); Monocyte# 0.43 X10^3/uL; Monocyte% 7.9 % (0-10); NRBC Flagged by Analyzer 0 % (0-5); Neutrophil # 3.33 X10^3/uL (2.7-7.7); Neutrophil % 61.3 % (47-70); Platelet Count 305 K/mm3 (150-450); RBC Distribution Width CV 13.1 % (11.6-14.6); RBC Distribution Width SD 40.5 fl (35.1-43.9); Red Blood Count 4.77 M/mm3 (4.2-5.4); White Blood Count 5.4 K/mm3 (4.4-11.0)
[2022-12-09 03:59] LABS: Anion Gap 6 (5-15); BUN 14 mg/dL (7-18); BUN/Creat Ratio 22.4 RATIO (10-20); Calcium,Total 9.1 mg/dL (8.5-10.1); Chloride 110 mmol/L (98-107); Creatinine, Serum 0.62 mg/dL (0.55-1.02); EST Glomerular Filtration Rate 103 mL/min (>60); Est Glom Filt Rate - Afr Amer 125 mL/min (>60); Estimated Creatinine Clearance 72.81 ml/min; Glucose 131 mg/dL (74-106); Potassium 3.3 mmol/L (3.5-5.1); Sodium Level 142 mmol/L (136-145)
[2022-12-09] MEDS: Ondansetron 4 MG/2 ML Vial IV (04:35)
[2022-12-09 04:40] VITALS: BP 148/82; PULSE 100; RESP 19; O2SAT 73
[2022-12-09] MEDS: levETIRAcetam 500 MG Tablet PO (07:05)
[2022-12-09 07:09] VITALS: BP 169/96; PULSE 72; RESP 16; O2SAT 97
== END 2022-12-09 07:10 | disposition home or self-care (01) ==
PROVIDERS: Emergency Provider Emergency Medicine; Visit Provider Emergency Medicine
DX: R56.9 Unspecified convulsions (principal); D32.9 Benign neoplasm of meninges, unspecified; E86.0 Dehydration; Z79.899 Other long term (current) drug therapy
CPT/HCPCS: 70450; 80048; 85025; 96361; 96374; 99285; J7030; A4216; J2405